=== PATIENT | male | born 1955 | race Hispanic/Latino ===

== ENCOUNTER 2018-01-13 09:50 | Observation (INO) | payer OTHER ==
[2018-01-05 12:09] LABS: BASOPHILS % 0.6 % (0.0-1.0); EOSINOPHILS # (AUTO) 0.2 (0.0-0.4); EOSINOPHILS % 2.5 % (0.0-6.0); HEMATOCRIT 42.2 % (38.2-49.6); HEMOGLOBIN 14.3 g/dL (14.0-18.0); LYMPHOCYTES # (AUTO) 1.6 (1.0-3.2); MEAN CORPUSCULAR HEMOGLOBIN 31.2 pg (28-32); MEAN CORPUSCULAR HGB CONC 33.9 g/dL (31-35); MEAN CORPUSCULAR VOLUME 92.1 fL (81-99); MONOCYTES # (AUTO) 0.7 (0.2-0.8); MONOCYTES % 9.4 % (4.4-11.3); NEUTROPHILS # (AUTO) 4.6 (2.1-6.9); NEUTROPHILS % 65.2 % (38.7-80.0); PLATELET COUNT 206 x10e3/uL (140-360); RED BLOOD COUNT 4.58 x10e6/uL (4.3-5.7); RED CELL DISTRIBUTION WIDTH 13.9 % (11.7-14.4)
[2018-01-05 12:21] LABS: ANION GAP 9.5 mmol/L (8-16); BLOOD UREA NITROGEN 14 mg/dL (7-26); BUN/CREATININE RATIO 13 (6-25); CALCIUM 9.2 mg/dL (8.4-10.2); CARBON DIOXIDE 30 mmol/L (22-29); CHLORIDE 103 mmol/L (98-107); CREATININE, SERUM 1.12 mg/dL (0.72-1.25); EST GLOMERULAR FILTRATION RATE > 60 ML/MIN (60-); GLUCOSE 129 mg/dL (74-118); POTASSIUM 4.5 mmol/L (3.5-5.1); SODIUM 138 mmol/L (136-145)
[~2018-01-13 09:50] MED LIST: ASA81 MG PO; FUROSEMIDE40 MG PO; HYDROCODONE AP PO; JANUVIA100 MG PO; LYRICA25 MG PO; METFORMIN HCL500 M2 PO; METOPROLOL TART25 MG PO; NAPROXEN250 MG PO; NITROGLYCERIN0.4 MG SL; OMEGA 3 1,0001 EACH PO; POTASSIUM CH2 MEQ/ML INJ; PRAVASTATIN SOD40 MG PO; XARELTO20 MG PO; Z.0.FUROSEMIDE40 MG PO; Z.0.LYRICA75 MG PO; Z.0.NAPROXEN500 M1 PO; Z.0.NITROSTAT0.4 MG SL; [UNRECOGNIZED DRUG - OTHER] PO
[2018-01-13] MEDS ORDERED: CEFAZOLIN SOD 2 GM/D5W 50ML 50 ML IV ONE (11:09)
[2018-01-13] MEDS ORDERED: LIDOCAINE HCL 1% LOCAL INJ 20 ML VIAL ONE (11:46)
[2018-01-13] MEDS ORDERED: BUPIVACAINE LIPOSOME/PF 266 MG/20 ML IJ ONE (11:46)
[2018-01-13] MEDS ORDERED: BACITRACIN 50,000 UNIT VIAL ONE (11:46)
[2018-01-13] MEDS ORDERED: ACETAMINOPHEN 1000 MG/100 ML 100 ML IV ONE (13:27)
[2018-01-13] MEDS ORDERED: HYDROGEN PEROXIDE 120 ML BTL ONE (16:23)
[2018-01-13] MEDS ORDERED: ONDANSETRON HCL INJ 2 MG/ML VIAL ONE (17:19)
[2018-01-13] MEDS ORDERED: LIDOCAINE HCL 2% LOCAL INJ 5 ML SDV VIAL INJ ONE (17:19)
[2018-01-13] MEDS ORDERED: SEVOFLURANE INHAL SOLN 250 ML PEN BTL ONE (17:19)
[2018-01-13] MEDS ORDERED: KETOROLAC TROMETHAMINE 30 MG/ML VIAL ONE (17:19)
[2018-01-13] MEDS ORDERED: DEXAMETHASONE SOD PHOS INJ 4 MG/ML VIAL ONE (17:19)
[2018-01-13] MEDS ORDERED: PROPOFOL IV EMULSION 10 MG/ML 20 ML VIAL ONE (17:19)
[2018-01-13] MEDS ORDERED: ACETAMINOPHEN 1000 MG/100 ML IV ONE (17:19)
[2018-01-13] MEDS ORDERED: FENTANYL CITRATE/PF 100MCG/2 ML INJ ONE ×2 (17:38→20:14)
[2018-01-13] MEDS ORDERED: MEPERIDINE HCL INJ 50 MG/ML INJ ONE (17:59)
--- NOTE | 2018-01-13 18:38 | Diagnostic Imaging Report ---
PROCEDURE:X-RAY RIGHT FOOT, TWO VIEWS COMPARISON:None. INDICATIONS:POST OP FINDINGS: Limited examination secondary to limited patient mobility, hardware obscuring bone, and lack of clinical history. AP and lateral postoperative radiographs are demonstrated of the foot. The ankle is partially visualized. There is extensive external fixation hardware which partially obscures visualization of bony structures. Surgical sutures overlie the medial and lateral ankle with associated subcutaneous gas and edema. Two partially threaded screws are seen transfixing the tibiotalar joint. Prior screw tracts are seen involving the distal tibia, likely from hardware removal. Extensive sclerotic and lytic destructive changes are seen involving the distal tibia/proximal talus which may reflect trauma, infection, or post operative change. There is a post traumatic partially seen deformity of the distal fibula. Alignment is otherwise maintained without evidence of other displaced fracture. There is diffuse osteopenia, which appears mottled in the foot, and may reflect disuse. Please refer to performing physician's notes for full details of this procedure. CONCLUSION: Post operative and traumatic changes of the foot and ankle as above. Dictated by: SAMANTHA GREGORY M.D. on 01/13/2018 at 18:42 Electronically approved by: SAMANTHA GREGORY M.D. on 01/13/2018 at 18:42
[2018-01-13] MEDS ORDERED: NITROGLYCERIN 0.4 MG SUBL SL PRN (19:45)
[2018-01-13] MEDS ORDERED: ROPIVACAINE 0.5% 5 MG/ML 30 ML SDV ONE (19:51)
[2018-01-13] MEDS ORDERED: LIDOCAINE 2%/ EPINEPHRINE 20ML MDV ONE (19:51)
[2018-01-13] MEDS ORDERED: MORPHINE SULFATE INJ 10 MG/ML ONE (20:14)
[2018-01-13] MEDS ORDERED: MIDAZOLAM HCL 2 MG/2 ML VIAL ONE (20:14)
[2018-01-13] MEDS: PREGABALIN 25 MG CAP PO SCH (20:40)
[2018-01-13] MEDS ORDERED: PRAVASTATIN 20 MG TAB PO SCH (21:00)
[2018-01-13] MEDS ORDERED: ACETAMINOPHEN 325 MG TAB PO PRN (21:30)
[2018-01-14] VITALS (8 sets, daily range): BP systolic 114–133; BP diastolic 55–70
[2018-01-14] MEDS: TRAMADOL HCL 50 MG TAB PO PRN ×4 (01:08→22:15)
[2018-01-14] MEDS: HYDROCODONE/APAP 10MG-325MG TAB PO PRN ×5 (03:30→21:07)
[2018-01-14] MEDS: SITAGLIPTIN 100 MG TAB PO SCH (08:48)
[2018-01-14] MEDS: METOPROLOL TARTRATE 25 MG TAB PO SCH ×2 (08:49→16:52)
[2018-01-14] MEDS: FUROSEMIDE 20 MG TAB PO SCH (08:49)
[2018-01-14] MEDS: OMEGA 3 POLYUNSAT FATTY ACIDS 1000 MG SOFTGEL PO SCH ×2 (08:50→16:52)
[2018-01-14] MEDS: PREGABALIN 25 MG CAP PO SCH ×3 (08:50→16:52)
[2018-01-14] MEDS: RIVAROXABAN 20 MG TABLET PO SCH (08:50)
[2018-01-14] MEDS ORDERED: METOPROLOL TARTRATE 25 MG TAB PO SCH (09:00)
[2018-01-14] MEDS ORDERED: METFORMIN HCL 500 MG TAB CR PO SCH (09:00)
[2018-01-14] MEDS ORDERED: FUROSEMIDE 40 MG TAB PO SCH (09:00)
[2018-01-14] MEDS ORDERED: NON-FORMULARY MEDICATION (Pravastatin Sodium 40 MG) PO SCH (09:00)
--- NOTE | 2018-01-14 14:28 | Progress Note ---
DATE: January 14, 2018 PODIATRY PROGRESS NOTE Patient was seen at bedside today, in no acute distress. Dressings clean, dry, intact to the right lower extremity. He did have his dressings changed earlier today and had the pin sites cleaned with alcohol. He denies any nausea, fever, chills, vomiting, any constitutional symptoms at this point. He did state that he had a mild fall earlier, trying to crutch-train on weightbearing. It was stressed to the patient that patient is to remain nonweightbearing in a wheelchair, not crutches. ASSESSMENT: Status post 1 day right ankle fusion with application of external fixator. PLAN: From podiatry standpoint, continue daily cleaning of the pin sites with alcohol. Planning on discharge tomorrow. Podiatry will continue to follow. Thank you again for including me in the care of this patient. Job#: [id number] EV
--- NOTE | 2018-01-14 15:48 | Operative Report ---
DATE OF PROCEDURE: January 13, 2018 PRINTING AND STAMPING SUPERVISOR: Seth Cervantes DPM PREOPERATIVE DIAGNOSIS: Right ankle nonunion with Charcot arthropathy. POSTOPERATIVE DIAGNOSIS: Right ankle nonunion with Charcot arthropathy. OPERATION PERFORMED 1. Right ankle arthrodesis. 2. Application of multiplanar external fixator right ankle. 3. Use of intraoperative fluoroscopy. ANESTHESIA: General. HEMOSTASIS: Thigh tourniquet at 250 mmHg. INJECTABLES: None. MATERIALS USED 1. Renée x6 ring for Charcot with the appropriate wires and pin. 2. Right 6.5 medical headless screws of the appropriate length. 3. Bio4 bone graft. DETAILS OF PROCEDURE: After informed consent was obtained, patient was brought to the operating room, placed on the operating table in supine position. General anesthesia was obtained. Pneumatic thigh tourniquet was applied to the right thigh. The right lower extremity was scrubbed, prepped and draped in the usual aseptic manner. Attention was directed to the right ankle where a linear incision was made on the lateral aspect of the right ankle. The incision was deepened down utilizing sharp dissection technique. All vital structures were identified and retracted as necessary. All bleeders identified, ligated and cauterized as necessary. Next the fibula was identified and resected at the nonunion site and held on the back table as a bone graft. Next, the ankle joint was thoroughly visualized. It was noted that there was a lot of necrotic sclerotic bone along the tibial plafond. All nonviable bone was resected and removed from the surgical site and all viable bone was saved as a bone graft. Next, the talar head was visualized and all articular cartilage was resected and removed from surgical site. Next, a tibiotalar arthrodesis site was thoroughly prepped with thorough irrigation and fenestration utilizing a 6.2 K-wire, also followed by fish scaling utilizing a small osteotome and mallet. Next, the tibial and talus were aligned and temporarily fixated. Intraoperative fluoroscopy was used which showed good reduction of deformity. Next, permanent fixation was completed utilizing two 6.5 partially threaded cannulated right medical screws of the appropriate length in a crossing screw fashion. Next, the wounds were irrigated with copious amounts of saline. The wounds were then coapted with 2-0 Vicryl, 4-0 Vicryl, and 4-0 nylon. Next, attention was directed to the right lower extremity. The right lower extremity was then placed into an external fixator. This was done under direct visualization utilizing intraoperative fluoroscopy. The was placed across the fusion site overlaying the right foot and ankle. Next, the right foot was then placed in a dry sterile dressing consisting of Xeroform, 4 x 4's, Kerlix and Gabo wrap. Pneumatic thigh tourniquet was deflated and prompt response was noted to all digits of the right lower extremity. Patient tolerated the procedure and anesthesia well. Patient was transferred back to recovery room with vital signs stable and neurovascular status intact to preop status. Job#: [id number] AP
[2018-01-14] MEDS: SIMVASTATIN 20 MG TAB PO SCH (21:07)
[2018-01-15] VITALS (8 sets, daily range): BP systolic 96–126; BP diastolic 51–67
[2018-01-15] MEDS: HYDROCODONE/APAP 10MG-325MG TAB PO PRN ×4 (01:38→16:54)
[2018-01-15] MEDS: TRAMADOL HCL 50 MG TAB PO PRN (04:35)
[2018-01-15 04:45] LABS: BASOPHILS % 0.2 % (0.0-1.0); EOSINOPHILS # (AUTO) 0.1 (0.0-0.4); EOSINOPHILS % 0.7 % (0.0-6.0); HEMATOCRIT 33.5 % (38.2-49.6); HEMOGLOBIN 11.5 g/dL (14.0-18.0); LYMPHOCYTES # (AUTO) 2.2 (1.0-3.2); LYMPHOCYTES % 17.4 % (18.0-39.1); MEAN CORPUSCULAR HEMOGLOBIN 31.9 pg (28-32); MEAN CORPUSCULAR HGB CONC 34.3 g/dL (31-35); MEAN CORPUSCULAR VOLUME 92.8 fL (81-99); MONOCYTES # (AUTO) 1.5 (0.2-0.8); MONOCYTES % 11.8 % (4.4-11.3); NEUTROPHILS # (AUTO) 8.6 (2.1-6.9); NEUTROPHILS % 69.6 % (38.7-80.0); PLATELET COUNT 172 x10e3/uL (140-360); RED BLOOD COUNT 3.61 x10e6/uL (4.3-5.7); RED CELL DISTRIBUTION WIDTH 13.9 % (11.7-14.4)
[2018-01-15 05:00] LABS: BLOOD UREA NITROGEN 14 mg/dL (7-26); BUN/CREATININE RATIO 17 (6-25); CALCIUM 8.4 mg/dL (8.4-10.2); CARBON DIOXIDE 28 mmol/L (22-29); CHLORIDE 100 mmol/L (98-107); CREATININE, SERUM 0.83 mg/dL (0.72-1.25); EST GLOMERULAR FILTRATION RATE > 60 ML/MIN (60-); GLUCOSE 123 mg/dL (74-118); MAGNESIUM 2.2 MG/DL (1.3-2.1); SODIUM 136 mmol/L (136-145)
[2018-01-15 08:09] LABS: CHOL/HDL RATIO 2.5 (3.9-4.7)
--- NOTE | 2018-01-15 08:11 | Progress Note ---
DATE: January 15, 2018 TIME OF SERVICE: 7 a.m. OVERNIGHT: Some shortness of breath, started on oxygen therapy. REVIEW OF SYSTEMS: Denies any dizziness, chest pain, fever, chills, sweats, nausea, vomiting or diarrhea. VITAL SIGNS: Reviewed. OBJECTIVE GENERAL APPEARANCE: A tired-appearing man resting in bed. HEENT: Anicteric. CARDIOVASCULAR: Normal S1 and S2. LUNGS: He has moderate breath sounds, slightly reduced. ABDOMEN: Soft, nontender, nondistended. EXTREMITIES: Right foot with an external fixator in place. SKIN: Dry. PSYCHIATRIC: Flat affect. LABS: Reviewed. MEDICATIONS: Reviewed. ASSESSMENT AND PLAN: A 62-year-old man. 1. Right ankle fracture. 2. Right foot pain. 3. Coronary artery disease. 4. Hypertension. 5. Diabetes mellitus. 6. Tobacco use. 7. Hyperlipidemia. 8. Shortness of breath. PLAN 1. Obtain chest x-ray, 2 views. 2. Use nebs p.r.n. 3. Continue oxygen support. 4. Consider azithromycin. 5. Provide antitussive medication. 6. Will need physical therapy and wheelchair for home use. 7. Discharge planning. Job#: [id number]
--- NOTE | 2018-01-15 08:52 | History and Physical ---
DATE OF SERVICE: January 14, 2018 TIME: 1 p.m. PRIMARY CARE PHYSICIAN: Dr. Roque CHIEF COMPLAINT: Right leg injury. HISTORY OF PRESENT ILLNESS: This is a 62-year-old man with a history of coronary artery disease, who is on ladder, trimming his trees when he fell off, falling onto his foot with tremendous pain, brought to the hospital, found to have right ankle fracture, underwent right ankle arthrodesis and application of multiplanar external fixator to the right ankle. Currently, patient's pain is about 4/10. PAST MEDICAL HISTORY: Coronary artery disease status post stent 11 years ago, hypertension, diabetes mellitus, tobacco abuse. PAST SURGICAL HISTORY: Coronary stent placement, left meniscus repair, heel spur, tobacco use. ALLERGIES: PER ELECTRONIC MEDICAL RECORD. FAMILY/SOCIAL HISTORY: Patient is . He has 3 children. No alcohol, illicits, or cigarettes. He does dip tobacco. MEDICATIONS: Per electronic medical record. REVIEW OF SYSTEMS: Denies any dizziness, chest pain, shortness of breath, fever, chills, sweats, nausea, vomiting, diarrhea, back pain. PHYSICAL EXAMINATION: VITAL SIGNS: Have been reviewed. GENERAL APPEARANCE: Tired-appearing man resting in bed. HEENT: Anicteric. CARDIOVASCULAR: Normal S1 and S2. LUNGS: Moderate breath sounds. ABDOMEN: Soft, nontender, nondistended. EXTREMITIES: No edema or calf tenderness in left leg. In right leg, he has external fixator in place. SKIN: Dry. PSYCHIATRIC: Flat affect. LABS: Reviewed. MEDICATIONS: Reviewed. ASSESSMENT: A 62-year-old man: 1. Right ankle fracture. 2. Right foot pain. 3. Coronary artery disease with history of stent. 4. Hypertension. 5. Diabetes mellitus. 6. Tobacco use. 7. Hyperlipidemia. PLAN: 1. Will need to follow up with orthopedics. 2. Pain control. 3. Continue Xarelto. 4. Continue statin and other medications. 5. Check hemoglobin A1c and lipid panel. Job#: [id number]
[2018-01-15] MEDS: AZITHROMYCIN 500MG/NS 250 ML 250 ML IV SCH (09:03)
[2018-01-15] MEDS: SITAGLIPTIN 100 MG TAB PO SCH (09:03)
[2018-01-15] MEDS: PREGABALIN 25 MG CAP PO SCH ×3 (09:04→22:00)
[2018-01-15] MEDS: FUROSEMIDE 20 MG TAB PO SCH (09:04)
[2018-01-15] MEDS: RIVAROXABAN 20 MG TABLET PO SCH (09:04)
[2018-01-15] MEDS: METFORMIN HCL 500 MG TAB CR PO SCH (09:04)
[2018-01-15] MEDS: METOPROLOL TARTRATE 25 MG TAB PO SCH ×2 (09:04→16:30)
[2018-01-15] MEDS: OMEGA 3 POLYUNSAT FATTY ACIDS 1000 MG SOFTGEL PO SCH ×2 (09:04→16:30)
--- NOTE | 2018-01-15 10:40 | Diagnostic Imaging Report ---
PROCEDURE: X-RAY CHEST, TWO VIEWS COMPARISON: 11/21/2011 INDICATIONS: SHORTNESS OF BREATH FINDINGS: LUNGS: No consolidations or edema. Right basilar atelectasis. PLEURA: No effusions or pneumothorax. HEART \T\ MEDIASTINUM: The heart is within normal size-limits. Elevated right hemidiaphragm anteriorly secondary to focal eventration BONES \T\ SOFT TISSUES: No acute findings. CONCLUSION: No acute thoracic abnormality. Carlos Acuña D.O. Dictated by: Carlos Acuña D.O. on 01/15/2018 at 10:45 Electronically approved by: Carlos Acuña D.O. on 01/15/2018 at 10:45
[2018-01-15] MEDS: ALBUTEROL/IPRATROPIUM 3 ML NEB NEB PRN (10:43)
--- NOTE | 2018-01-15 14:27 | Progress Note ---
DATE: January 15, 2018 The patient was seen at bedside today. No acute distress. He does admit to some shortness of breath overnight. Other than that, denies any other constitutional symptoms. Clinically, the pin sites look good. I did recommend a dressing change with cleaning of the pin sites with alcohol. ASSESSMENT 1. Status post 2 days, right ankle arthrodesis with application of external fixator. 2. Coronary artery disease. 3. Hypertension. 4. Diabetes mellitus with peripheral neuropathy. 5. History of Charcot arthropathy of the right ankle. PLAN: From a podiatry standpoint, dressing changes were ordered today, which consist of cleaning the pin sites with alcohol and placement of Xeroform, 4 x 4's, Kerlix, and an Gabo wrap along the pin sites and the external fixator. I have recommended a D-dimer study along with a venous duplex study prior to discharge. If the studies come back negative, the patient is okay to discharge home. He is to follow up with me in the clinic within 1 week of discharge. He is to stay nonweightbearing on the right lower extremity with a wheelchair. Thank you again for including me in the care of this patient. Job#: [id number] CARRILLO
[2018-01-15] MEDS ORDERED: SODIUM CHLORIDE 0.9% 50ML 50 ML ONE (18:37)
[2018-01-15] MEDS ORDERED: IOPAMIDOL 370 MG/ML 200 ML INFUS..BTL INJ ONE (18:37)
--- NOTE | 2018-01-15 18:53 | Diagnostic Imaging Report ---
PROCEDURE:CT CHEST WITH CONTRAST COMPARISON:None. INDICATIONS:sob, pe, post surgery 2 days, history of blood clots TECHNIQUE: Axial CT images of the chest were obtained after the intravenous administration of 100 cc of nonionic contrast. Coronal and sagittal reformations were made available for review. RADIATION DOSE: Total DLP: 584.98 mGy*cm Estimated effective dose: (DLP x 0.014 x size factor) mSv FINDINGS: Pulmonary arteries: Thin, linear filling defect in the proximal lower lobe branch of the right pulmonary artery. Small, nonocclusive filling defect in the proximal lower lobe branch of the left pulmonary artery. No filling defects in the main pulmonary artery. Main pulmonary artery measures 2.8 cm in diameter. Aorta: Normal in diameter. No evidence of dissection. Lungs: Diffusely hyperinflated. There is dependent subpleural ground glass attenuation suggestive of atelectasis. No consolidations or edema. No discrete mass. Pleura:No pleural effusion or pneumothorax. There is mild eventration of right diaphragm. Heart \T\ Mediastinum:Prominent epicardial fat pads. No pericardial effusion. Coronary artery calcifications are present. The esophagus is collapsed. Lymph nodes: No enlarged axillary, supraclavicular lymph nodes. No large mediastinal lymph nodes. Mildly prominent right hilar lymph node measures 8 mm. Upper abdomen:There is fatty atrophy of the pancreas. Low attenuating lesion in the liver dome measures 3 mm, too small characterize. Portions of the gallbladder, spleen, adrenal glands coming kidneys are unremarkable. Musculoskeletal:No focal osseous lesions. Soft tissues are unremarkable. CONCLUSION: 1. Web in a lower lobe branch of the right pulmonary artery and tiny nonocclusive filling defects in the lower lobe branch of the left pulmonary artery suggestive of chronic emboli. No acute embolus. 2. Pulmonary hyperinflation consistent with COPD. No pulmonary infiltrates. Dictated by: Rodriguez Alejandro M.D. on 01/15/2018 at 18:57 Electronically approved by: Rodriguez Alejandro M.D. on 01/15/2018 at 18:58
[2018-01-15] MEDS: SIMVASTATIN 20 MG TAB PO SCH (22:00)
[2018-01-16 00:01] VITALS: BP 128/67
[2018-01-16] MEDS: HYDROCODONE/APAP 10MG-325MG TAB PO PRN ×3 (00:10→08:19)
[2018-01-16 05:00] VITALS: BP 115/56
[2018-01-16 07:39] VITALS: BP 112/58
[2018-01-16] MEDS: AZITHROMYCIN 500MG/NS 250 ML 250 ML IV SCH (08:18)
[2018-01-16] MEDS: FUROSEMIDE 20 MG TAB PO SCH (08:18)
[2018-01-16] MEDS: SITAGLIPTIN 100 MG TAB PO SCH (08:18)
[2018-01-16] MEDS: OMEGA 3 POLYUNSAT FATTY ACIDS 1000 MG SOFTGEL PO SCH (08:18)
[2018-01-16] MEDS: RIVAROXABAN 20 MG TABLET PO SCH (08:18)
[2018-01-16] MEDS: PREGABALIN 25 MG CAP PO SCH (08:18)
[2018-01-16 08:19] VITALS: BP 112/50
[2018-01-16] MEDS: METOPROLOL TARTRATE 25 MG TAB PO SCH (08:19)
[2018-01-16] MEDS: METFORMIN HCL 500 MG TAB CR PO SCH (08:19)
[2018-01-16] MEDS ORDERED: ALPRAZOLAM 0.5 MG TAB PO PRN (09:30)
[2018-01-16] MEDS: ALBUTEROL/IPRATROPIUM 3 ML NEB NEB PRN (09:32)
[2018-01-16] MEDS ORDERED: TYLENOL # 31 EA PO (09:34)
[2018-01-16] MEDS ORDERED: XANAX0.5 MG PO (09:34)
[2018-01-16] MEDS ORDERED: PROAIR HFA INH8.5 GM INH (09:34)
[2018-01-16] MEDS ORDERED: ZITHROMAX500 MG PO (09:34)
[2018-01-16 09:51] LABS: BASOPHILS % 0.3 % (0.0-1.0); EOSINOPHILS # (AUTO) 0.2 (0.0-0.4); EOSINOPHILS % 2.2 % (0.0-6.0); HEMATOCRIT 33.4 % (38.2-49.6); HEMOGLOBIN 11.1 g/dL (14.0-18.0); LYMPHOCYTES # (AUTO) 1.8 (1.0-3.2); LYMPHOCYTES % 18.3 % (18.0-39.1); MEAN CORPUSCULAR HEMOGLOBIN 31.5 pg (28-32); MEAN CORPUSCULAR HGB CONC 33.2 g/dL (31-35); MEAN CORPUSCULAR VOLUME 94.9 fL (81-99); MONOCYTES # (AUTO) 0.8 (0.2-0.8); MONOCYTES % 8.3 % (4.4-11.3); NEUTROPHILS # (AUTO) 6.8 (2.1-6.9); NEUTROPHILS % 70.5 % (38.7-80.0); PLATELET COUNT 184 x10e3/uL (140-360); RED BLOOD COUNT 3.52 x10e6/uL (4.3-5.7); RED CELL DISTRIBUTION WIDTH 13.8 % (11.7-14.4)
[2018-01-16 10:04] LABS: ANION GAP 12.4 mmol/L (8-16); BLOOD UREA NITROGEN 13 mg/dL (7-26); BUN/CREATININE RATIO 13 (6-25); CALCIUM 8.6 mg/dL (8.4-10.2); CARBON DIOXIDE 30 mmol/L (22-29); CHLORIDE 102 mmol/L (98-107); CREATININE, SERUM 1.03 mg/dL (0.72-1.25); EST GLOMERULAR FILTRATION RATE > 60 ML/MIN (60-); GLUCOSE 190 mg/dL (74-118); POTASSIUM 4.4 mmol/L (3.5-5.1); SODIUM 140 mmol/L (136-145)
[2018-01-16] MEDS ORDERED: FUROSEMIDE INJ 10 MG/ML 2 ML VIAL IV ONE (11:15)
[2018-01-16 12:05] VITALS: BP 148/72
--- NOTE | 2018-01-16 19:23 | Discharge Summary ---
ADMISSION DIAGNOSES 1. Right ankle fracture. 2. Right foot pain. 3. Coronary artery disease with history of stent. 4. Hypertension. 5. Diabetes. 6. Tobacco use. 7. Hyperlipidemia. 8. History of deep venous thrombosis. DISCHARGE DIAGNOSES 1. Right ankle fracture. 2. Right foot pain. 3. Coronary artery disease with history of stent. 4. Hypertension. 5. Diabetes. 6. Tobacco use. 7. Hyperlipidemia. 8. History of deep venous thrombosis. HISTORY: The patient has a history of CAD, status post stent 11 years ago, hypertension, diabetes, tobacco abuse, DVT. Surgical history of coronary stent placement, left meniscus repair, heel spur, and tobacco use. HOSPITAL COURSE: A 62-year-old male was on a ladder trimming his trees when he fell off falling onto his right foot. He came to the ER and was found to have a right ankle fracture. He immediately underwent right ankle arthrodesis and application of external fixator to the right ankle. On admission, the patient had a chest x-ray which was negative. A CT of the chest showed web in a lower lobe branch of the right pulmonary artery and tiny nonocclusive filling defects in the lower lobe branch of the left pulmonary artery suggestive of chronic emboli. No acute embolus. Pulmonary hyperinflation consistent with COPD. No pulmonary infiltrate. The patient also had bilateral lower extremity venous Dopplers, which showed DVT and superficial veins bilaterally. On January 13, 2018, the patient had the surgery and tolerated it well. Patient and family were taught how to clean around the screws and will follow up with Dr. Collins next Thursday, who is the pipeline technician who performed the procedure. The patient will discharge home continuing home meds, including Xarelto 20 mg daily. He also complained of anxiety. The patient was sent home with Xanax 0.5 mg b.i.d. p.r.n., as well as albuterol inhaler for shortness of breath related to anxiety. The patient's pain is tolerated. He is nonweightbearing on the right foot, and will need to get around using a wheelchair, which he already has at bedside. The patient and family understand discharge instructions and agree with plan. The patient is excited and happy to go home. DICTATED BY CHELLY WINSTON NP ADAL CRESPO MD Job#: [id number] RI
== END 2018-01-16 11:45 | disposition home or self-care (01) ==
LOC: OR 09:50 → INTOOBSV 19:49 → MED/SURG 19:49
PROVIDERS: ADMIT Internal Medicine; ATTEND Internal Medicine
DX: S82.891A Other fracture of right lower leg, initial encounter for closed fracture (principal); M14.671 Charcot's joint, right ankle and foot; I25.10 Atherosclerotic heart disease of native coronary artery without angina pectoris; I10 Essential (primary) hypertension; E66.01 Morbid (severe) obesity due to excess calories; Z91.013 Allergy to seafood; E78.5 Hyperlipidemia, unspecified; Z72.0 Tobacco use; E11.42 Type 2 diabetes mellitus with diabetic polyneuropathy; Z86.718 Personal history of other venous thrombosis and embolism; F41.9 Anxiety disorder, unspecified; W11.XXXA Fall on and from ladder, initial encounter; Y93.H2 Activity, gardening and landscaping
CPT/HCPCS: 27870; 36415 ×4; 71046; 71260; 73620; 76001; 80048 ×3; 80061; 82948 ×3; 83036; 83735; 83880; 85025 ×3; 85379; 93005; 93970; 94640 ×2; 94660; 97116; 97139; 97161; G0378 ×4; J0456 ×2; J1100; J1885; J1940; J2001 ×2; J2175; J2250; J2270; J2405; J2795; Q9967

== ENCOUNTER → 2018-04-05 | Outpatient (CLI) | payer OTHER ==
[~2018-04-05] MED LIST changes: +PROAIR HFA INH8.5 GM INH; +TYLENOL # 31 EA PO; +XANAX0.5 MG PO; +ZITHROMAX500 MG PO
--- NOTE | 2018-04-06 08:10 | Diagnostic Imaging Report ---
PROCEDURE: BONE DXA DUAL ENERGY COMPARISON:None. INDICATIONS:OTHER SPECIFIED DISORDERS OF BONE DENSITY FINDINGS:Evaluation of the left hip and lumbar spine was performed utilizing DEXA Hologic bone densitometer. The study is technically adequate. The patient does not have any known previous non-traumatic fractures or other risk factors. Left hip total bone mineral density: 1.168 gm/cm2, T-score is 0.9, Z-score is 1.3. Lumbar spine total bone mineral density: 1.225 gm/cm2, T-score is 1.2, Z-score is 1.9. Impression: 1. Normal bone mineral density of the left hip, fracture risk is not increased. 2. Normal bone mineral density of the lumbar spine, fracture risk is not increased. The patient's fracture risk is compared to an age-matched control. Medical evaluation for secondary causes of low bone mineral density may be appropriate. Correlate clinically for the necessity and timing of the next bone mineral density study. National Osteoporosis Foundation recommendations: Initial therapy to reduce fracture risk in postmenopausal women with -BMD t-scores below -2.0 by central DXA with no risk factors -BMD t-scores below -1.5 by central CXA with one or more risk factors (first deg relative with hip fracture, prior personalfracture, low body weight, smoking) -A prior vertebral or hip fracture AACE n(Clinical Endocrinology) recommends treating the following: Postmenopausal women who have osteoporosis as diagnosed by fragility fractures or t-score -2.5 or below. Postmenopausal women who have risk factors (including hx of hip fracture, low body weight, smoking, risk of falling, high bone turnover, advancing age) and borderline low BMD T-scores of -1.5 or below Adequate intake of calcium (at least 1200mg/day) and vitamin D (400-800IU/day). Regular weight bearing and muscle-strengthening exercises Avoid smoking and excessive alcohol Carlos Acuña D.O. Dictated by: Carlos Acuña D.O. on 04/06/2018 at 8:18 Electronically approved by: Carlos Acuña D.O. on 04/06/2018 at 8:18
== END ==
LOC: DX 09:47
PROVIDERS: ATTEND Internal Medicine
DX: M85.80 Other specified disorders of bone density and structure, unspecified site (principal)
CPT/HCPCS: 77080

== ENCOUNTER → 2018-04-22 | Day surgery (SDC) | payer OTHER ==
[~2018-04-22] MED LIST changes: +ACETAMINOPHEN 1000 MG/100 ML IV ONE; +BUPIVACAINE HCL 0.5% 10ML MPF VIAL INJ ONE; +CEFAZOLIN SOD 2 GM/D5W 50ML 50 ML IV ONE; +FENTANYL CITRATE/PF 100MCG/2 ML INJ ONE; +KETOROLAC TROMETHAMINE 30 MG/ML VIAL ONE; +MIDAZOLAM HCL 2 MG/2 ML VIAL ONE; +PROPOFOL IV EMULSION 10 MG/ML 20 ML VIAL ONE
--- OUTSIDE RECORDS SUMMARY | 2018-04-22 09:37 | XMS REPORT | Continuity of Care Document ---
Author Author [facility] Address Unknown Phone Unavailable Problems Problem Status Onset Date Classification Date Reported Comments Source OSTEOMYELETIS Active 04/17/2017 [facility] OSTEOMYELITIS Active 04/15/2017 [facility] FALL Active 09/28/2016 [facility] Discharge Diagnosis: Fracture of ankle, bimalleolar, right, closed 09/28/2016 10/01/2016 [facility] DVT of lower extremity, bilateral Resolved Problem 04/25/2017 [facility] High cholesterol Resolved Problem 04/25/2017 [facility] Hypertension Resolved Problem 04/25/2017 [facility] Heart attack Resolved Problem 04/25/2017 [facility] Medications Medication Details Route Status Patient Instructions Ordering Provider Order Date Source naproxen 500 mg oral tablet 500 mg=1 tab, PO, BID, # 60 tab, 0 Refill(s) Active 09/28/2016 [facility] Acetaminophen 300 MG / Codeine Phosphate 30 MG Oral Tablet [Tylenol with Codeine #3] 1 - 2 tab, PO, Q4H, PRN Pain, X 3 day, # 20 tab, 0 Refill(s) Active 09/28/2016 [facility] Acetaminophen 325 MG / Hydrocodone Bitartrate 5 MG Oral Tablet [[place]worth 5/325] 1 tab, Route: PO, Drug Form: TAB, Dosing Weight 102.273, kg, ONCE, STAT, Start date: 09/28/16 10:29:00 CDT, Stop date: 09/28/16 10:29:00 CDT Inactive 09/28/2016 [facility] Allergies, Adverse Reactions, Alerts Substance Category Reaction Severity Reaction type Status Date Reported Comments Source Immunizations Immunization Date Given Site Status Last Updated Comments Source Results Order Name Results Value Reference Range Date Interpretation Comments Source Bone scan 3 phase NM Bone scan 3 phase NM EXAM: Three-phase bone scan HISTORY: Osteomyelitis COMPARISON: Radiographs right ankle 09/28/2016 TECHNIQUE: Three-phase bone scan performed of the ankles following IV administration of 27 mCi technetium 99m MDP via right PICC line. FINDINGS: Increased tracer activity in the right ankle on blood flow, blood pool and delayed images. Degenerative type tracer activity at the 1st metatarsophalangeal joints and mid feet bilaterally. IMPRESSION: Findings compatible with osteomyelitis right ankle. 13 04/22/2017 - - Read by: Spencer Tucker MD Dictated Date/time: 04/22/17 16:46 Electronically Signed by: Spencer Tucker MD 04/22/17 16:52 FINAL REPORT [facility] Chest 1view DX Chest 1view DX Portable chest: The PICC line tip is in good position in the lower SVC. The cardiac silhouette and pulmonary vasculature are within normal limits. The lungs spaces are clear. There are no significant osseous abnormalities. [id number] 04/16/2017 - - Read by: Adolfo Waters MD Dictated Date/time: 04/16/17 09:52 Electronically Signed by: Adolfo Waters MD 04/16/17 09:52 FINAL REPORT [facility] Ankle 2 views DX Ankle 2 views DX Clinical Indication: ANKLE PAIN AFTER FALLING FROM LADDER TRYING TO CUT DOWN TREE - fall, pain; Comparison: None FINDINGS: 2 view of the right ankle. Comminuted fracture of the distal tibial metaphysis extending to the articular surface. Superiorly and anteriorly displaced fragment of the anterior surface of the tibial metaphysis. The medial malleolus is also mildly displaced. Nondisplaced, minimally angulated fracture of the distal ulnar diaphysis. Medial airspace slightly widened. Soft tissue swelling circumferentially. If there is further concern, recommend follow-up radiographs or MRI for complete assessment. IMPRESSION: Comminuted intra-articular distal tibial metaphyseal fracture. Nondisplaced transverse fracture of the distal ulnar diaphysis. : [id number] 09/28/2016 - - Read by: Adolfo Logan MD Dictated Date/time: 09/28/16 10:56 Electronically Signed by: Adolfo Logan MD 09/28/16 10:59 FINAL REPORT [facility] Vital Signs Vital Sign Value Date Comments Source BMI Calculated 32.17 04/16/2017 [facility] Weight 93.182 04/16/2017 [facility] Height 170.18 cm 04/16/2017 [facility] Temperature Oral (F) 98.3 F 09/28/2016 [facility] Heart Rate 67 09/28/2016 [facility] Respitory Rate 15 09/28/2016 [facility] Systolic (mm Hg) 151 09/28/2016 [facility] Diastolic (mm Hg) 84 09/28/2016 [facility] Weight 102.273 09/28/2016 [facility] BMI Calculated 35.31 09/28/2016 [facility] Respitory Rate 17 09/28/2016 [facility] Heart Rate 69 09/28/2016 [facility] Systolic (mm Hg) 157 09/28/2016 [facility] Diastolic (mm Hg) 97 09/28/2016 [facility] Height 170.18 cm 09/28/2016 [facility] Temperature Oral (F) 98.3 F 09/28/2016 [facility] Encounters Location Location Details Encounter Type Encounter Number Reason For Visit Attending Provider ADM Date DC Date Status Source [facility] Emergency [id number] Sean Jessica 09/28/2016 09/28/2016 [facility] [id number] Erica Clarke 04/16/2017 04/17/2017 [facility] [id number] Erica Clarke 04/22/2017 04/23/2017 [facility] Procedures Procedure Code Date Perfomer Comments Source Arthroscopic knee operation [id number] [facility] Bunionectomy [id number] [facility] Provision of stents or bite blocks<sup>1</sup> [id number] heart stents [facility]
[2018-04-22 13:45] VITALS: BP 121/75
--- NOTE | 2018-05-06 16:06 | Operative Report ---
DATE OF PROCEDURE: April 22, 2018 SUPERVISOR CAPACITOR PROCESSING: None. PREOPERATIVE DIAGNOSIS: Painful hardware, right foot and ankle. POSTOPERATIVE DIAGNOSIS: Painful hardware, right foot and ankle. OPERATION PERFORMED: 1. Removal of external fixator, multiple fixation from left foot and ankle. 2. Use of intraoperative fluoroscopy. DETAILS OF PROCEDURE: After informed consent was obtained, the patient was brought to the operating room and placed on the operating table in the supine position. General anesthesia was obtained. Pneumatic thigh tourniquet was applied to the right thigh. The right lower extremity was then scrubbed, prepped and draped in the usual aseptic manner. Attention was directed to the right foot and ankle where the external fixator was removed from the right foot and ankle utilizing wire cutters. The external fixator was removed and then all wires and pen sites were removed from the surgical site. Intraoperative fluoroscopy was used at this point to make sure that all wires and remaining pens were removed from the right lower extremity. The right foot was then placed in a dry sterile dressing consisting of Xeroform, 4 x 4, Kerlix and Gabo wrap. The patient tolerated the procedure and anesthesia well. The patient was transferred back to the recovery room with vital signs stable and neurovascular status intact to preop status. Job#: [id number]
== END | disposition home or self-care (01) ==
LOC: OR 09:25
PROVIDERS: ATTEND Podiatrist Foot & Ankle Surgery
DX: T84.84XA Pain due to internal orthopedic prosthetic devices, implants and grafts, initial encounter (principal); I25.2 Old myocardial infarction; E11.51 Type 2 diabetes mellitus with diabetic peripheral angiopathy without gangrene; M19.012 Primary osteoarthritis, left shoulder; I25.111 Atherosclerotic heart disease of native coronary artery with angina pectoris with documented spasm; I11.9 Hypertensive heart disease without heart failure; I05.9 Rheumatic mitral valve disease, unspecified; E78.5 Hyperlipidemia, unspecified; G47.33 Obstructive sleep apnea (adult) (pediatric); I82.501 Chronic embolism and thrombosis of unspecified deep veins of right lower extremity; Y83.8 Other surgical procedures as the cause of abnormal reaction of the patient, or of later complication, without mention of misadventure at the time of the procedure; Z79.02 Long term (current) use of antithrombotics/antiplatelets; Z79.84 Long term (current) use of oral hypoglycemic drugs; Z79.82 Long term (current) use of aspirin; Z68.36 Body mass index [BMI] 36.0-36.9, adult; Z95.5 Presence of coronary angioplasty implant and graft
CPT/HCPCS: 20694; 36415; 82948; J0131; J0690; J1885; J2250; J2704; 76000

== ENCOUNTER → 2019-05-06 | Day surgery (SDC) | payer MEDICARE ==
[2019-05-04 10:03] LABS: BASOPHILS % 0.4 % (0.0-1.0); EOSINOPHILS # (AUTO) 0.1 (0.0-0.4); EOSINOPHILS % 1.5 % (0.0-6.0); HEMOGLOBIN 15.6 g/dL (14.0-18.0); LYMPHOCYTES # (AUTO) 1.6 (1.0-3.2); LYMPHOCYTES % 20.9 % (18.0-39.1); MEAN CORPUSCULAR HEMOGLOBIN 31.4 pg (28-32); MEAN CORPUSCULAR HGB CONC 33.9 g/dL (31-35); MEAN CORPUSCULAR VOLUME 92.6 fL (81-99); MONOCYTES # (AUTO) 0.7 (0.2-0.8); MONOCYTES % 9.1 % (4.4-11.3); NEUTROPHILS # (AUTO) 5.1 (2.1-6.9); NEUTROPHILS % 67.7 % (38.7-80.0); PLATELET COUNT 217 x10e3/uL (140-360); RED BLOOD COUNT 4.97 x10e6/uL (4.3-5.7); RED CELL DISTRIBUTION WIDTH 13.2 % (11.7-14.4)
[2019-05-04 10:18] LABS: ANION GAP 14.3 mmol/L (8-16); BLOOD UREA NITROGEN 14 mg/dL (7-26); BUN/CREATININE RATIO 13 (6-25); CARBON DIOXIDE 26 mmol/L (22-29); CHLORIDE 98 mmol/L (98-107); CREATININE, SERUM 1.07 mg/dL (0.72-1.25); EST GLOMERULAR FILTRATION RATE > 60 ML/MIN (60-); GLUCOSE 104 mg/dL (74-118); POTASSIUM 4.3 mmol/L (3.5-5.1); SODIUM 134 mmol/L (136-145)
--- NOTE | 2019-05-04 11:16 | Diagnostic Imaging Report ---
EXAMINATION: CHEST 2 VIEWS INDICATION: Pre-operative COMPARISON: Chest Radiograph 04/20/2019 FINDINGS: LINES/TUBES:None LUNGS:The lungs are well-inflated. No focal consolidation or pulmonary edema. PLEURA:No pleural effusion or pneumothorax. MEDIASTINUM:The cardiomediastinal silhouette appears normal in size and shape. BONES/SOFT TISSUES:No acute osseous injury. ABDOMEN:No free air under the diaphragm. IMPRESSION: 1. No focal pneumonia or pulmonary edema. Signed by: Leighann Marquez MD on 05/04/2019 11:13 AM
[~2019-05-06] MED LIST changes: -ACETAMINOPHEN 1000 MG/100 ML IV ONE; -BUPIVACAINE HCL 0.5% 10ML MPF VIAL INJ ONE; +BUPIVACAINE HCL 0.5% INJ 30 ML VIAL INJ ONE; -CEFAZOLIN SOD 2 GM/D5W 50ML 50 ML IV ONE; +DEXAMETHASONE SOD PHOS INJ 4 MG/ML VIAL ONE; +ENTRESTO 24 MG1 EACH PO; -KETOROLAC TROMETHAMINE 30 MG/ML VIAL ONE; +LIDOCAINE HCL 2% LOCAL INJ 5 ML SDV VIAL INJ ONE; +NEOSTIGMINE 1 MG/ML 10ML VIAL ONE; +ONDANSETRON HCL INJ 2MG/ML 2ML 2 MG/ML VIAL ONE; +SEVOFLURANE INHAL SOLN 250 ML PEN BTL ONE; +SPIRONOLACTONE25 MG PO; +VITAMIN D31000 UNIT PO
[2019-05-06] MEDS: CEFAZOLIN SOD 1 GM/NS 50ML 100 ML IV ONE (06:56)
[2019-05-06 12:35] VITALS: BP 107/76
--- NOTE | 2019-05-07 04:08 | Operative Report ---
DATE OF PROCEDURE: 05/06/2019 SURGEON: Seth Cervantes DPM ROOM NUMBER: [facility]. PREOPERATIVE DIAGNOSES: Plantar fasciitis, plantar calcaneal spur. POSTOPERATIVE DIAGNOSES: Plantar fasciitis, plantar calcaneal spur. TITLE OF OPERATION: Endoscopic plantar fasciotomy of the right foot with excision of heel spur, right foot. ANESTHESIA: General endotracheal. HEMOSTASIS: Right thigh tourniquet at 350 mmHg. PROCEDURE IN DETAIL: The patient was taken to the operating room in a mildly sedated state, placed on the operating table in supine position. Following induction of general anesthetic, the right lower extremity was placed on the operating table prior to performing following procedure. Procedure #1: Endoscopic plantar fasciotomy of the right foot. An approximate 2 cm medial stab incision was placed on the right foot, plantar fascia was identified. Cannula was advanced across the plantar aspect and the lateral aspect and the area was irrigated with copious amounts of sterile saline solution. A Q-tip was used to clean the cannula before advancement of the camera. Camera was used to identify the medial band of the plantar fascia, which was transected sharply to allow for lengthening of the plantar fascia. The bone spur itself was identified and through the same incision. After removal of the cannula, a bone spur was resected utilizing a power rasp under fluoroscopy, irrigated and closed with 3-0 Vicryl, 4-0 nylon. The appropriate mildly compressive dressings were applied and the patient left the operating room, vital signs stable in apparent satisfactory condition and tolerated both anesthetic and procedure very well. SHEEBA Mendieta/ANI /[id number]
== END | disposition home or self-care (01) ==
LOC: OR 06:08
PROVIDERS: ATTEND Podiatrist Foot Surgery
DX: M72.2 Plantar fascial fibromatosis (principal); M77.31 Calcaneal spur, right foot; G47.33 Obstructive sleep apnea (adult) (pediatric); E11.9 Type 2 diabetes mellitus without complications; I25.10 Atherosclerotic heart disease of native coronary artery without angina pectoris; I25.2 Old myocardial infarction; I11.0 Hypertensive heart disease with heart failure; I50.9 Heart failure, unspecified; Z79.02 Long term (current) use of antithrombotics/antiplatelets; Z79.82 Long term (current) use of aspirin; Z79.84 Long term (current) use of oral hypoglycemic drugs; Z95.5 Presence of coronary angioplasty implant and graft
CPT/HCPCS: 28104; 29893; 36415 ×2; 71046; 80048; 82948; 85025; 93005; J0690; J1100; J2001; J2250; J2405; J2704; J2710; J3010; Q4100; 76000

== ENCOUNTER 2019-05-23 00:31 | Emergency (ER) | payer MEDICARE, OTHER ==
[~2019-05-23] VITALS: Ht 170.2 cm; Wt 103.4 kg
[~2019-05-23 00:31] MED LIST changes: -BUPIVACAINE HCL 0.5% INJ 30 ML VIAL INJ ONE; -DEXAMETHASONE SOD PHOS INJ 4 MG/ML VIAL ONE; -FENTANYL CITRATE/PF 100MCG/2 ML INJ ONE; -LIDOCAINE HCL 2% LOCAL INJ 5 ML SDV VIAL INJ ONE; -MIDAZOLAM HCL 2 MG/2 ML VIAL ONE; -NEOSTIGMINE 1 MG/ML 10ML VIAL ONE; -ONDANSETRON HCL INJ 2MG/ML 2ML 2 MG/ML VIAL ONE; -PROPOFOL IV EMULSION 10 MG/ML 20 ML VIAL ONE; -SEVOFLURANE INHAL SOLN 250 ML PEN BTL ONE
[2019-05-23] MEDS ORDERED: ONDANSETRON HCL INJ 2MG/ML 2ML 2 MG/ML VIAL IV STA (00:35)
[2019-05-23] MEDS ORDERED: PANTOPRAZOLE 40 MG 10ML VIAL IV STA (00:35)
[2019-05-23] MEDS ORDERED: MORPHINE SULFATE 2 MG/ML SYR 1ML IV STA (00:35)
[2019-05-23] MEDS ORDERED: DICYCLOMINE HCL 20 MG/2 ML VIAL IM ONE (00:45)
[2019-05-23 01:02] LABS: BASOPHILS % 0.2 % (0.0-1.0); EOSINOPHILS % 0.1 % (0.0-6.0); HEMATOCRIT 43.2 % (38.2-49.6); HEMOGLOBIN 14.6 g/dL (14.0-18.0); LYMPHOCYTES # (AUTO) 1.5 (1.0-3.2); LYMPHOCYTES % 10.7 % (18.0-39.1); MEAN CORPUSCULAR HEMOGLOBIN 31.1 pg (28-32); MEAN CORPUSCULAR HGB CONC 33.8 g/dL (31-35); MEAN CORPUSCULAR VOLUME 91.9 fL (81-99); MONOCYTES # (AUTO) 0.9 (0.2-0.8); MONOCYTES % 6.5 % (4.4-11.3); NEUTROPHILS # (AUTO) 11.7 (2.1-6.9); PLATELET COUNT 245 x10e3/uL (140-360); RED CELL DISTRIBUTION WIDTH 13.1 % (11.7-14.4)
[2019-05-23 01:05] LABS: BILIRUBIN,URINE NEGATIVE (NEGATIVE); CLARITY,URINE CLEAR (CLEAR); COLOR,URINE YELLOW (YELLOW); KETONES,URINE NEGATIVE (NEGATIVE); LEUKOCYTE ESTERASE ,URINE NEGATIVE (NEGATIVE); NITRITE,URINE NEGATIVE (NEGATIVE); PROTEIN,URINE DIPSTICK NEGATIVE (NEGATIVE); URINE UROBILINOGEN 0.2 mg/dL (0.2 - 1)
[2019-05-23 01:16] LABS: ALANINE AMINOTRANSFERASE 23 IU/L (0-55); ALBUMIN 3.8 g/dL (3.5-5.0); ALKALINE PHOSPHATASE 94 IU/L (40-150); ANION GAP 16.2 mmol/L (8-16); BLOOD UREA NITROGEN 14 mg/dL (7-26); BUN/CREATININE RATIO 13 (6-25); CALCIUM 9.7 mg/dL (8.4-10.2); CARBON DIOXIDE 23 mmol/L (22-29); CHLORIDE 97 mmol/L (98-107); CREATINE KINASE 86 IU/L (30-200); CREATININE, SERUM 1.11 mg/dL (0.72-1.25); EST GLOMERULAR FILTRATION RATE > 60 ML/MIN (60-); GLUCOSE 168 mg/dL (74-118); POTASSIUM 4.2 mmol/L (3.5-5.1); SODIUM 132 mmol/L (136-145)
[2019-05-23 01:17] LABS: AMYLASE 144 U/L (25-125); LIPASE 13 U/L (8-78)
[2019-05-23 01:22] LABS: BACTERIA,URINE FEW /HPF; EPITHELIAL CELLS,URINE FEW /LPF; MUCUS,URINE FEW (RARE)
--- NOTE | 2019-05-23 02:16 | Diagnostic Imaging Report ---
HISTORY: Right upper quadrant pain ^ruq pain TECHNIQUE: Selected images from limited abdominal ultrasound provided for INTERPRETATION: COMPARISON: CT chest 01/15/2018. FINDINGS: Pancreas: Poorly visualized due to bowel gas. Liver: Measures 16.0 cm in sagittal plane. The echotexture is increased. No mass in the visualized portions. Portal Vein: Measures 0.7 cm. Proper directional flow on spectral Doppler interrogation. Intrahepatic bile ducts: Normal Gallbladder: Present. Stone in the gallbladder neck measures 9 mm. No gallbladder wall thickening or pericholecystic fluid. Sonographic Quintanilla sign is negative. CBD: 0.3 cm. Right Kidney: 11.3 cm in greatest length. The echotexture is normal. There is no evidence for mass. There is no collecting system dilatation or evidence of obstruction. No renal calculi evident. No adjacent free fluid or fluid collections. The aorta and IVC are poorly visualized due to bowel gas. There is no free fluid. IMPRESSION: Cholelithiasis. No sonographic evidence of acute cholecystitis. No biliary ductal dilatation. Steatosis. Signed by: Dr. Rodriguez Alejandro MD on 05/23/2019 2:13 AM
[2019-05-23 03:37] VITALS: BP 128/68
== END 2019-05-23 03:58 | disposition home or self-care (01) ==
LOC: ER 00:31
DX: R10.11 Right upper quadrant pain (principal); R10.13 Epigastric pain; R11.2 Nausea with vomiting, unspecified; K80.70 Calculus of gallbladder and bile duct without cholecystitis without obstruction; I10 Essential (primary) hypertension; E11.9 Type 2 diabetes mellitus without complications; E78.5 Hyperlipidemia, unspecified; I25.2 Old myocardial infarction
CPT/HCPCS: 36415; 76705; 80053; 81001; 82150; 82550; 82553; 83690; 84484; 85025; 93005; 96372; 96374; 99284; C9113; J0500; J2270; J2405

== ENCOUNTER → 2019-06-01 | Outpatient (CLI) | payer MEDICARE ==
[~2019-06-01] MED LIST changes: +DIATRIZOATE MEGL/DIATRIZOA SOD 30 ML BTL PO ONE; +IOPAMIDOL 370 MG/ML 200 ML INFUS..BTL INJ ONE; +SODIUM CHLORIDE 0.9% 50ML 50 ML ONE
[2019-06-01 11:22] LABS: BLOOD UREA NITROGEN 13 mg/dL (7-26); BUN/CREATININE RATIO 13 (6-25); CREATININE, SERUM 1.04 mg/dL (0.72-1.25); EST GLOMERULAR FILTRATION RATE > 60 ML/MIN (60-)
--- NOTE | 2019-06-01 12:40 | Diagnostic Imaging Report ---
CT of the abdomen, with contrast, 06/01/2019. History: Upper abdominal pain. Comparison: Ultrasound 05/23/2019. Technique: Multidetector CT scanning of the abdomen was performed from the level of the lung bases to the iliac crests after intravenous and oral administration of contrast. Coronal and sagittal multiplanar reformations were obtained. RADIATION DOSE: Total DLP: 522 mGy*cm Dose modulation, iterative reconstruction, and/or weight based adjustment of the mA/kV was utilized to reduce the radiation dose to as low as reasonably achievable. Discussion: LUNG BASES: No visualized abnormalities. ABDOMEN: Small stones are noted within the gallbladder. The liver, biliary tree, spleen, pancreas, adrenal glands, and kidneys are normal. The hepatic vein, portal vein, and splenic vein are patent. The abdominal aorta is within normal limits for size. The stomach and visualized bowel are unremarkable. The appendix appears prominent but is air-filled without evidence of adjacent inflammation. There is no evidence of adenopathy or free fluid. BONES AND SOFT TISSUES: Degenerative changes are present throughout the lumbar spine without evidence of lytic or sclerotic lesion. IMPRESSION: Cholelithiasis. Otherwise unremarkable exam. Signed by: Lc Polanco on 06/01/2019 12:37 PM
== END ==
LOC: CT 10:16
PROVIDERS: ATTEND Surgery
DX: R10.9 Unspecified abdominal pain (principal); K80.80 Other cholelithiasis without obstruction
CPT/HCPCS: 36415; 74160; 82565; 84520; Q9967

== ENCOUNTER → 2021-05-15 | Outpatient (CLI) | payer MEDICARE ==
[2021-05-15 13:04] LABS: CREATININE, SERUM 1.2 mg/dL (0.72-1.25)
== END ==
LOC: CT 11:30
PROVIDERS: ATTEND Family Medicine
DX: R10.31 Right lower quadrant pain (principal)
CPT/HCPCS: 36415; 74177; 82565; 84520; Q9967

== ENCOUNTER → 2024-02-08 | Day surgery (SDC) | payer MEDICARE ==
[2024-02-01 09:24] LABS: BASOPHILS % 0.3 % (0.0-1.0); EOSINOPHILS # (AUTO) 0.1 (0.0-0.4); EOSINOPHILS % 1.2 % (0.0-6.0); HEMATOCRIT 42.7 % (38.2-49.6); HEMOGLOBIN 14.3 g/dL (14.0-18.0); LYMPHOCYTES # (AUTO) 1.7 (1.0-3.2); LYMPHOCYTES % 18.6 % (18.0-39.1); MEAN CORPUSCULAR HEMOGLOBIN 32.4 pg (28-32); MEAN CORPUSCULAR HGB CONC 33.5 g/dL (31-35); MEAN CORPUSCULAR VOLUME 96.6 fL (81-99); MONOCYTES # (AUTO) 0.9 (0.2-0.8); MONOCYTES % 9.3 % (4.4-11.3); NEUTROPHILS # (AUTO) 6.4 (2.1-6.9); NEUTROPHILS % 70.2 % (38.7-80.0); PLATELET COUNT 233 x10e3/uL (140-360); RED BLOOD COUNT 4.42 x10e6/uL (4.3-5.7); RED CELL DISTRIBUTION WIDTH 13.3 % (11.7-14.4); WHITE BLOOD COUNT 9.14 x10e3/uL (4.8-10.8)
[2024-02-01 10:00] LABS: ALBUMIN 3.7 g/dL (3.5-5.0); ANION GAP 12.5 mmol/L (8-16); BILIRUBIN,TOTAL 0.3 mg/dL (0.2-1.2); CALCIUM 9.5 mg/dL (8.4-10.2); CREATININE, SERUM 1.15 mg/dL (0.72-1.25); POTASSIUM 4.5 mmol/L (3.5-5.1); TOTAL PROTEIN 7.3 g/dL (6.5-8.1)
[2024-02-01 11:19] LABS: CHOL/HDL RATIO 2.6 (3.9-4.7)
[2024-02-08] VITALS (14 sets, daily range): BP systolic 104–157; BP diastolic 63–86; PULSE 62–80; RESP 10–19; TEMP 95.3–96.3; O2SAT 96–100
[~2024-02-08] VITALS: Ht 167.6 cm; Wt 98.9 kg
[~2024-02-08] MED LIST changes: +ALDACTONE50 MG PO; +ASPIR 8181 MG PO; +BENADRYL ITCH28.3 GM TOP; +BYDUREON B2 MG/0.85; +CETIRIZINE HCL10 MG; +CIPRO500 MG PO; +CLOPIDOGREL75 MG PO; -DIATRIZOATE MEGL/DIATRIZOA SOD 30 ML BTL PO ONE; +ENTRESTO 49 MG1 EACH PO; +FENTANYL CITRATE/PF 100MCG/2 ML INJ ONE; +FISH OIL 1,0001 EAC6 PO; +FISH OIL 1,0001 EAC7 PO; +FLONASE ALLERG9.9 ML INH; +HEPARIN SOD (PORCINE) 1000 UNIT/ML 30ML ONE; +HEPARIN SOD/SOD CHLORIDE 2,000 ML ONE; +IOPAMIDOL 370 MG/ML 100 ML INFUS..BTL INJ ONE; -IOPAMIDOL 370 MG/ML 200 ML INFUS..BTL INJ ONE; +JARDIANCE25 MG PO; +LIDOCAINE HCL 2% LOCAL 20 ML VIAL ONE; +LYRICA75 MG PO; +METFORMIN HCL500 MG PO; +MIDAZOLAM HCL 2 MG/2 ML VIAL ONE; +MINOCYCLINE HCL50 MG PO; +NEURONTIN300 MG PO; +NITROGLYCERIN/D5W 200 MCG/ML 250 ML ONE; +OZEMPIC2 MG/0.75; +PANTOPRAZOLE SO40 MG PO; +PAXLOVID 300-11 EAC1; +PRAVASTATIN SOD80 MG; +SODIUM CHLORIDE 0.9% 1000ML 1,000 ML ONE; -SODIUM CHLORIDE 0.9% 50ML 50 ML ONE; +TRADJENTA5 MG PO; +TYLENOL325 MG PO; +VERAPAMIL HCL 2.5 MG/ML 2 ML VIAL ONE; +VITAMIN D250 MCG PO; +VITAMIN D3 COM1 EACH PO
[2024-02-08] MEDS: ALPRAZOLAM 0.5 MG TAB ONE (08:00)
[2024-02-08] MEDS: DIPHENHYDRAMINE HCL 25 MG CAP ONE (08:00)
== END | disposition home or self-care (01) ==
LOC: CATH LAB 06:36
PROVIDERS: ATTEND Internal Medicine
DX: I25.10 Atherosclerotic heart disease of native coronary artery without angina pectoris (principal); R94.39 Abnormal result of other cardiovascular function study; I25.2 Old myocardial infarction; I11.0 Hypertensive heart disease with heart failure; I50.9 Heart failure, unspecified; E78.00 Pure hypercholesterolemia, unspecified; E11.9 Type 2 diabetes mellitus without complications; M19.049 Primary osteoarthritis, unspecified hand; Z01.812 Encounter for preprocedural laboratory examination; Z79.02 Long term (current) use of antithrombotics/antiplatelets; Z68.35 Body mass index [BMI] 35.0-35.9, adult
CPT/HCPCS: 36415; 76937; 80053; 80061; 83880; 85025; 93458; C1769; C1887 ×2; J1644; J2001; J2250; J3010; J7030; Q9967; 99152

== ENCOUNTER 2025-03-01 00:16 | Inpatient (IN) | payer MEDICARE ==
[~2025-03-01] VITALS: Ht 170.2 cm; Wt 93.4 kg
[~2025-03-01 00:16] MED LIST changes: -FENTANYL CITRATE/PF 100MCG/2 ML INJ ONE; -HEPARIN SOD (PORCINE) 1000 UNIT/ML 30ML ONE; -HEPARIN SOD/SOD CHLORIDE 2,000 ML ONE; -IOPAMIDOL 370 MG/ML 100 ML INFUS..BTL INJ ONE; -LIDOCAINE HCL 2% LOCAL 20 ML VIAL ONE; -MIDAZOLAM HCL 2 MG/2 ML VIAL ONE; -NITROGLYCERIN/D5W 200 MCG/ML 250 ML ONE; -SODIUM CHLORIDE 0.9% 1000ML 1,000 ML ONE; -VERAPAMIL HCL 2.5 MG/ML 2 ML VIAL ONE
[2025-03-01 00:39] LABS: BASOPHILS % 0.4 % (0.0-1.0); EOSINOPHILS % 1.7 % (0.0-6.0); LYMPHOCYTES % 21.0 % (18.0-39.1); MONOCYTES % 9.7 % (4.4-11.3); NEUTROPHILS % 66.9 % (38.7-80.0); RED CELL DISTRIBUTION WIDTH 12.7 % (11.7-14.4)
[2025-03-01] MEDS ORDERED: Morphine 4mg INJECTION 4 MG/ML INJ IV PRN (01:00)
[2025-03-01] MEDS ORDERED: ONDANSETRON HCL INJ 2MG/ML 2ML 2 MG/ML VIAL IV PRN (01:00)
[2025-03-01 04:53] LABS: EST GLOMERULAR FILTRATION RATE 71.0 ML/MIN (>=60)
[2025-03-01 04:57] VITALS: PULSE 75; RESP 16; O2SAT 98
[2025-03-01] MEDS ORDERED: OZEMPIC2 MG/0.75 SC (07:30)
[2025-03-01] MEDS ORDERED: GLIMEPIRIDE2 MG PO (07:30)
[2025-03-01] MEDS ORDERED: ETODOLAC200 MG PO (07:30)
[2025-03-01] MEDS ORDERED: FISH OIL 1,001000 M1 PO (07:30)
[2025-03-01] MEDS ORDERED: SIMETHICONE 80 MG CHEW PO PRN (12:30)
[2025-03-01] MEDS ORDERED: POTASSIUM CHLORIDE 20 MEQ TAB CR PO PRN (12:30)
[2025-03-01] MEDS ORDERED: ACETAMINOPHEN 325 MG TAB PO PRN (12:30)
[2025-03-01] MEDS ORDERED: DOCUSATE SODIUM 100 MG CAP PO PRN (12:30)
[2025-03-01] MEDS ORDERED: ALBUTEROL/IPRATROPIUM 3 ML NEB NEB PRN (12:30)
[2025-03-01] MEDS ORDERED: DIPHENHYDRAMINE HCL 25 MG CAP PO PRN (12:30)
[2025-03-01] MEDS ORDERED: HYDRALAZINE HCL 20 MG/ML VIAL IV PRN (12:30)
[2025-03-01] MEDS ORDERED: MELATONIN 5 MG TABLET PO PRN (12:30)
[2025-03-01] MEDS ORDERED: DEXTROSE 50% SYRINGE 50 ML IV PRN ×3 (12:30→16:45)
[2025-03-01] MEDS ORDERED: BENZONATATE 100 MG CAP PO PRN (12:30)
[2025-03-01] MEDS ORDERED: IOPAMIDOL 370 MG/ML 100 ML INFUS..BTL INJ ONE (14:04)
[2025-03-01] MEDS ORDERED: METOPROLOL TARTRATE 25 MG TAB PO SCH (17:00)
[2025-03-01] MEDS ORDERED: ENOXAPARIN SOD INJ 40 MG/0.4 ML SYR SC SCH (17:00)
[2025-03-01] MEDS ORDERED: INSULIN LISPRO 100 UNIT/1 ML 3ML VIAL SQ SCH (17:45)
[2025-03-01 18:15] VITALS: PULSE 86; RESP 16; TEMP 98.2
[2025-03-01 20:00] VITALS: BP 141/77; PULSE 69; RESP 17; TEMP 98.7; O2SAT 100
[2025-03-01] MEDS: ATORVASTATIN 40 MG TAB PO SCH (21:35)
[2025-03-01] MEDS: METOPROLOL TARTRATE 25 MG TAB PO SCH (21:35)
[2025-03-01] MEDS: ENOXAPARIN SOD INJ 40 MG/0.4 ML SYR SC SCH (21:36)
[2025-03-01] MEDS: INSULIN LISPRO 100 UNIT/1 ML 3ML VIAL SQ SCH (21:44)
[2025-03-01 21:48] VITALS: BP 141/77; PULSE 69; RESP 17; TEMP 98.7; O2SAT 100
[2025-03-01 21:49] VITALS: BP 141/77; PULSE 69; RESP 17; TEMP 98.7; O2SAT 100
[2025-03-02] VITALS (18 sets, daily range): BP systolic 92–139; BP diastolic 56–83; PULSE 60–71; RESP 10–20; TEMP 97.4–98.7; O2SAT 94–100
[2025-03-02 06:48] LABS: BASOPHILS % 0.4 % (0.0-1.0); EOSINOPHILS % 3.4 % (0.0-6.0); LYMPHOCYTES % 24.5 % (18.0-39.1); MONOCYTES % 9.3 % (4.4-11.3); NEUTROPHILS % 62.1 % (38.7-80.0); RED CELL DISTRIBUTION WIDTH 12.8 % (11.7-14.4)
[2025-03-02 07:15] LABS: EST GLOMERULAR FILTRATION RATE 81.0 ML/MIN (>=60)
[2025-03-02 07:32] LABS: CHOL/HDL RATIO 4.5 (3.9-4.7); LDL CHOLESTEROL 51.0 MG/DL (60-130)
[2025-03-02] MEDS: ASPIRIN 81 MG CHEW TAB PO SCH (08:08)
[2025-03-02] MEDS: PANTOPRAZOLE SOD 40 MG TABEC PO SCH (08:08)
[2025-03-02] MEDS ORDERED: HEPARIN 25,000 UNIT/D5W 250ML 25,000 UNIT in DEXTROSE 5% 250ML 250 ML IV SCH (09:45)
[2025-03-02 10:29] LABS: INR 0.89
[2025-03-02] MEDS: HEPARIN SOD (PORCINE) 5,000 UNIT/ML VIAL IV ONE (10:44)
[2025-03-02] MEDS: HEPARIN 25,000 UNIT/D5W 250ML 250 ML IV SCH (10:45)
[2025-03-02] MEDS ORDERED: APIXABAN 5 MG TABLET PO SCH (17:00)
[2025-03-02] MEDS: APIXABAN 5 MG TABLET PO SCH (17:25)
[2025-03-03] VITALS (12 sets, daily range): BP systolic 99–125; BP diastolic 62–82; PULSE 68–76; RESP 16–18; TEMP 97.9–98.9; O2SAT 95–100
[2025-03-03 05:31] LABS: BASOPHILS % 0.5 % (0.0-1.0); EOSINOPHILS % 3.6 % (0.0-6.0); LYMPHOCYTES % 20.1 % (18.0-39.1); MONOCYTES % 9.1 % (4.4-11.3); NEUTROPHILS % 66.3 % (38.7-80.0); RED CELL DISTRIBUTION WIDTH 12.6 % (11.7-14.4)
[2025-03-03 05:48] LABS: EST GLOMERULAR FILTRATION RATE 81.0 ML/MIN (>=60)
[2025-03-03] MEDS: MIDAZOLAM HCL 2 MG/2 ML VIAL ONE (08:30)
[2025-03-03] MEDS: FENTANYL CITRATE/PF 100MCG/2 ML INJ ONE (08:30)
[2025-03-03] MEDS: VERAPAMIL HCL 2.5 MG/ML 2 ML VIAL ONE (08:31)
[2025-03-03] MEDS: HEPARIN SOD (PORCINE) 1000 UNIT/ML 30ML ONE (08:31)
[2025-03-03] MEDS: SODIUM CHLORIDE 0.9% 1000ML 1,000 ML ONE (08:31)
[2025-03-03] MEDS: IOPAMIDOL 370 MG/ML 100 ML INFUS..BTL INJ ONE (08:31)
[2025-03-03] MEDS: LIDOCAINE HCL 2% LOCAL 20 ML VIAL ONE (08:31)
[2025-03-03] MEDS: NITROGLYCERIN/D5W 200 MCG/ML 0 ML ONE (08:31)
[2025-03-03] MEDS: HEPARIN SOD/SOD CHLORIDE 2,000 ML ONE (08:32)
[2025-03-03] MEDS: GLIMEPIRIDE 2 MG TAB PO SCH (09:00)
[2025-03-03] MEDS ORDERED: APIXABAN 5 MG TABLET PO SCH (09:00)
[2025-03-03] MEDS: WARFARIN SOD 3 MG TAB PO ONE (17:48)
[2025-03-03] MEDS: ENOXAPARIN SODIUM INJ 100 MG/ML SYR SC SCH (21:56)
[2025-03-04] VITALS (9 sets, daily range): BP systolic 105–128; BP diastolic 61–72; PULSE 60–95; RESP 16–18; TEMP 97.6–98.6; O2SAT 96–100
[2025-03-04 06:59] LABS: BASOPHILS % 0.6 % (0.0-1.0); EOSINOPHILS % 2.5 % (0.0-6.0); LYMPHOCYTES % 23.0 % (18.0-39.1); MONOCYTES % 9.0 % (4.4-11.3); NEUTROPHILS % 64.6 % (38.7-80.0); RED CELL DISTRIBUTION WIDTH 12.7 % (11.7-14.4)
[2025-03-04 07:28] LABS: INR 0.95
[2025-03-04 07:41] LABS: EST GLOMERULAR FILTRATION RATE 70.0 ML/MIN (>=60)
[2025-03-04] MEDS: FUROSEMIDE INJ 10 MG/ML 4 ML VIAL IV ONE (16:29)
[2025-03-04] MEDS: WARFARIN SOD 3 MG TAB PO ONE (16:29)
[2025-03-05] VITALS (11 sets, daily range): BP systolic 104–136; BP diastolic 51–80; PULSE 72–78; RESP 16–18; TEMP 97.7–98.8; O2SAT 96–100
[2025-03-05 08:16] LABS: BASOPHILS % 0.5 % (0.0-1.0); EOSINOPHILS % 2.8 % (0.0-6.0); LYMPHOCYTES % 22.9 % (18.0-39.1); MONOCYTES % 10.0 % (4.4-11.3); NEUTROPHILS % 63.4 % (38.7-80.0); RED CELL DISTRIBUTION WIDTH 12.6 % (11.7-14.4)
[2025-03-05 08:22] LABS: INR 1.11
[2025-03-05 08:24] LABS: EST GLOMERULAR FILTRATION RATE 72.0 ML/MIN (>=60)
[2025-03-05] MEDS: WARFARIN SOD 5 MG TAB PO ONE (16:31)
[2025-03-06] VITALS (11 sets, daily range): BP systolic 99–138; BP diastolic 50–80; PULSE 62–78; RESP 16–18; TEMP 97.7–98.6; O2SAT 94–100
[2025-03-06 07:16] LABS: BASOPHILS % 0.3 % (0.0-1.0); EOSINOPHILS % 2.5 % (0.0-6.0); LYMPHOCYTES % 20.6 % (18.0-39.1); MONOCYTES % 9.9 % (4.4-11.3); NEUTROPHILS % 66.4 % (38.7-80.0); RED CELL DISTRIBUTION WIDTH 12.7 % (11.7-14.4)
[2025-03-06 07:20] LABS: INR 1.49
[2025-03-06 07:30] LABS: EST GLOMERULAR FILTRATION RATE 67.0 ML/MIN (>=60)
[2025-03-06] MEDS: WARFARIN SOD 2.5 MG TAB PO ONE (16:12)
[2025-03-07] VITALS (9 sets, daily range): BP systolic 99–147; BP diastolic 58–86; PULSE 66–76; RESP 14–18; TEMP 97.6–98.4; O2SAT 94–100
[2025-03-07 06:37] LABS: BASOPHILS % 0.3 % (0.0-1.0); EOSINOPHILS % 2.4 % (0.0-6.0); LYMPHOCYTES % 22.2 % (18.0-39.1); MONOCYTES % 10.1 % (4.4-11.3); NEUTROPHILS % 64.7 % (38.7-80.0); RED CELL DISTRIBUTION WIDTH 12.7 % (11.7-14.4)
[2025-03-07 06:56] LABS: INR 2.01
[2025-03-07 07:09] LABS: EST GLOMERULAR FILTRATION RATE 81.0 ML/MIN (>=60)
[2025-03-07] MEDS: WARFARIN SOD 5 MG TAB PO ONE (17:05)
[2025-03-08] VITALS (7 sets, daily range): BP systolic 106–147; BP diastolic 53–82; PULSE 66–70; RESP 16–19; TEMP 97.7–98.4; O2SAT 96–100
[2025-03-08 06:37] LABS: INR 2.1
[2025-03-08] MEDS: WARFARIN SOD 3 MG TAB PO SCH (17:01)
== END 2025-03-08 18:00 | disposition home or self-care (01) | DRG 287 ==
LOC: ER 00:23 → ERHOLD 00:48 → MED/SURG3 18:58 → OBSVTOIN 03-03 01:32
PROVIDERS: ADMIT Internal Medicine; ATTEND Internal Medicine
PROC: B2111ZZ Fluoroscopy of Multiple Coronary Arteries using Low Osmolar Contrast (ICD-10-PCS; principal; 2025-03-02)
DX: I51.3 Intracardiac thrombosis, not elsewhere classified (principal); I25.10 Atherosclerotic heart disease of native coronary artery without angina pectoris; R07.81 Pleurodynia; E11.9 Type 2 diabetes mellitus without complications; I10 Essential (primary) hypertension; E78.5 Hyperlipidemia, unspecified; E66.01 Morbid (severe) obesity due to excess calories; Z68.32 Body mass index [BMI] 32.0-32.9, adult; Z79.01 Long term (current) use of anticoagulants; Z79.02 Long term (current) use of antithrombotics/antiplatelets; Z79.82 Long term (current) use of aspirin; Z79.51 Long term (current) use of inhaled steroids; Z79.84 Long term (current) use of oral hypoglycemic drugs; Z79.85 Long-term (current) use of injectable non-insulin antidiabetic drugs; I25.2 Old myocardial infarction; Z95.5 Presence of coronary angioplasty implant and graft; Z90.49 Acquired absence of other specified parts of digestive tract; Z91.013 Allergy to seafood
CPT/HCPCS: 36415; 71045; 71260; 76937; 80048; 80053; 80061; 82550; 82948; 83036; 83690; 83735; 83880; 84443; 84484; 85025; 85610; 85730; 93005; 93306; 93454; 94799; 99152; 99284; C1769; C1887; G0378; J1644; J1650; J1938; J2003; J2250; J2470; J7030; Q9967

== ENCOUNTER 2025-04-16 21:43 | Inpatient (IN) | payer MEDICARE ==
[~2025-04-16] VITALS: Ht 170.2 cm; Wt 88.5 kg
[~2025-04-16 21:43] MED LIST changes: +ETODOLAC200 MG PO; +FISH OIL 1,001000 M1 PO; +GLIMEPIRIDE2 MG PO; +OZEMPIC2 MG/0.75 SC
[2025-04-16 22:24] LABS: BASOPHILS % 0.2 % (0.0-1.0); EOSINOPHILS % 0.0 % (0.0-6.0); LYMPHOCYTES % 3.5 % (18.0-39.1); MONOCYTES % 6.4 % (4.4-11.3); NEUTROPHILS % 89.2 % (38.7-80.0); RED CELL DISTRIBUTION WIDTH 13.1 % (11.7-14.4)
[2025-04-16] MEDS: ACETAMINOPHEN 325 MG TAB PO ONE (22:32)
[2025-04-16 22:41] LABS: EST GLOMERULAR FILTRATION RATE 58.0 ML/MIN (>=60)
[2025-04-16 22:42] LABS: INR 2.85
[2025-04-16] MEDS ORDERED: IOPAMIDOL 370 MG/ML 100 ML INFUS..BTL INJ ONE (22:58)
[2025-04-16 23:56] LABS: LEUKOCYTE ESTERASE ,URINE NEGATIVE (NEGATIVE); PROTEIN,URINE DIPSTICK NEGATIVE (NEGATIVE); URINE UROBILINOGEN 0.2 mg/dL (0.2 - 1)
[2025-04-17] VITALS (7 sets, daily range): BP systolic 122; BP diastolic 75; PULSE 77–87; RESP 13–23; TEMP 98.2–98.7; O2SAT 96–100
[2025-04-17 01:35] LABS: CORONAVIRUS COVID-19 AG NEGATIVE (NEGATIVE)
[2025-04-17] MEDS ORDERED: DEXTROSE 50% SYRINGE 50 ML IV PRN ×3 (02:15→17:30)
[2025-04-17] MEDS ORDERED: ACETAMINOPHEN 325 MG TAB PO PRN ×2 (02:15→13:15)
[2025-04-17] MEDS: SODIUM CHLORIDE 0.9% 1000ML 1,000 ML IV ONE (03:14)
[2025-04-17] MEDS: ALBUTEROL SULF 0.083% NEB SOLN 3 ML NEB NEB SCH (03:19)
[2025-04-17] MEDS ORDERED: SODIUM CHLORIDE 0.9% 1000ML 1,000 ML ONE (06:07)
[2025-04-17] MEDS: IPRATROPIUM BROMIDE 0.02% 2.5 ML NEB NEB SCH (07:25)
[2025-04-17] MEDS: INSULIN REGULAR, HUMAN 100 UNIT/1 ML SQ SCH (07:30)
[2025-04-17] MEDS ORDERED: BENZONATATE 100 MG CAP PO PRN (13:15)
[2025-04-17] MEDS ORDERED: DOCUSATE SODIUM 100 MG CAP PO PRN (13:15)
[2025-04-17] MEDS ORDERED: SIMETHICONE 80 MG CHEW PO PRN (13:15)
[2025-04-17] MEDS ORDERED: ONDANSETRON HCL INJ 2MG/ML 2ML 2 MG/ML VIAL IV PRN (13:15)
[2025-04-17] MEDS ORDERED: TRAMADOL HCL 50 MG TAB PO PRN (13:15)
[2025-04-17] MEDS ORDERED: POTASSIUM CHLORIDE 20 MEQ TAB CR PO PRN (13:15)
[2025-04-17] MEDS ORDERED: HYDRALAZINE HCL 20 MG/ML VIAL IV PRN (13:15)
[2025-04-17] MEDS ORDERED: DIPHENHYDRAMINE HCL 25 MG CAP PO PRN (13:15)
[2025-04-17] MEDS ORDERED: ALBUTEROL/IPRATROPIUM 3 ML NEB NEB PRN (13:15)
[2025-04-17] MEDS ORDERED: LIDOCAINE 4% PATCH TP PRN (13:15)
[2025-04-17] MEDS: ENOXAPARIN SOD INJ 40 MG/0.4 ML SYR SC SCH (17:00)
[2025-04-17] MEDS ORDERED: WARFARIN SODIUM5 MG PO (17:29)
[2025-04-17] MEDS ORDERED: SPIRONOLACTONE50 MG PO (17:29)
[2025-04-17] MEDS: WARFARIN SOD 5 MG TAB PO SCH (18:53)
[2025-04-17] MEDS: INSULIN LISPRO 100 UNIT/1 ML 3ML VIAL SQ SCH (21:00)
[2025-04-17] MEDS ORDERED: MELATONIN 5 MG TABLET PO PRN (21:00)
[2025-04-17] MEDS: GABAPENTIN 300 MG CAP PO SCH (21:47)
[2025-04-17] MEDS: PRAVASTATIN 20 MG TAB PO SCH (21:48)
[2025-04-18] VITALS (13 sets, daily range): BP systolic 97–125; BP diastolic 58–70; PULSE 65–92; RESP 16–20; TEMP 97.3–98.8; O2SAT 96–100
[2025-04-18 06:14] LABS: BASOPHILS % 0.5 % (0.0-1.0); EOSINOPHILS % 2.8 % (0.0-6.0); LYMPHOCYTES % 14.1 % (18.0-39.1); MONOCYTES % 8.6 % (4.4-11.3); NEUTROPHILS % 73.6 % (38.7-80.0); RED CELL DISTRIBUTION WIDTH 13.6 % (11.7-14.4)
[2025-04-18 06:32] LABS: INR 2.81
[2025-04-18 06:38] LABS: EST GLOMERULAR FILTRATION RATE 65.0 ML/MIN (>=60); PHOSPHORUS 4.2 MG/DL (2.3-4.7)
[2025-04-18] MEDS: SODIUM CHLORIDE 0.9% 250ML 250 ML ONE (08:20)
[2025-04-18] MEDS: NON-FORMULARY MEDICATION (Empagliflozin (Jardiance) 25 MG) PO SCH (09:00)
[2025-04-18] MEDS: ASPIRIN 81 MG CHEW TAB PO SCH (09:49)
[2025-04-18] MEDS: SACUBITRIL49MG/VALSARTAN51MG 1 EACH TABLET PO SCH (09:49)
[2025-04-18] MEDS: METOPROLOL TARTRATE 25 MG TAB PO SCH (09:50)
[2025-04-18] MEDS: PANTOPRAZOLE SOD 40 MG TABEC PO SCH (09:50)
[2025-04-18] MEDS: FUROSEMIDE 40 MG TAB PO SCH (09:53)
[2025-04-18] MEDS: KETOROLAC TROMETHAMINE 30 MG/ML VIAL IV STA (16:00)
[2025-04-18] MEDS: OMEGA 3 POLYUNSAT FATTY ACIDS 1000 MG SOFTGEL PO SCH (17:10)
[2025-04-19] VITALS (11 sets, daily range): BP systolic 96–110; BP diastolic 55–72; PULSE 63–83; RESP 18–20; TEMP 97.8–98.1; O2SAT 95–100
[2025-04-19 05:33] LABS: BASOPHILS % 0.5 % (0.0-1.0); EOSINOPHILS % 4.5 % (0.0-6.0); LYMPHOCYTES % 17.8 % (18.0-39.1); MONOCYTES % 9.2 % (4.4-11.3); NEUTROPHILS % 67.7 % (38.7-80.0); RED CELL DISTRIBUTION WIDTH 13.6 % (11.7-14.4)
[2025-04-19 06:01] LABS: EST GLOMERULAR FILTRATION RATE 64.0 ML/MIN (>=60)
[2025-04-19] MEDS: SODIUM CHLORIDE 0.9% 250ML 250 ML ONE (07:32)
[2025-04-19 16:23] LABS: INR 2.42
[2025-04-20] VITALS (7 sets, daily range): BP systolic 94–111; BP diastolic 61–69; PULSE 71–81; RESP 18–20; TEMP 97.6–98.7; O2SAT 97–100
== END 2025-04-20 12:10 | disposition home or self-care (01) | DRG 872 ==
LOC: ER 22:05 → ERHOLD 04-17 02:07 → MED/SURG2 04-17 20:28
PROVIDERS: ADMIT Internal Medicine; ATTEND Internal Medicine
DX: A41.9 Sepsis, unspecified organism (principal); I50.22 Chronic systolic (congestive) heart failure; I82.511 Chronic embolism and thrombosis of right femoral vein; I51.3 Intracardiac thrombosis, not elsewhere classified; I11.0 Hypertensive heart disease with heart failure; Z79.01 Long term (current) use of anticoagulants; M79.651 Pain in right thigh; R59.0 Localized enlarged lymph nodes; D72.828 Other elevated white blood cell count; I25.10 Atherosclerotic heart disease of native coronary artery without angina pectoris; Z95.5 Presence of coronary angioplasty implant and graft; E11.42 Type 2 diabetes mellitus with diabetic polyneuropathy; E11.51 Type 2 diabetes mellitus with diabetic peripheral angiopathy without gangrene; Z79.84 Long term (current) use of oral hypoglycemic drugs; E78.5 Hyperlipidemia, unspecified; E66.01 Morbid (severe) obesity due to excess calories; Z68.30 Body mass index [BMI] 30.0-30.9, adult; Z71.3 Dietary counseling and surveillance; Z71.82 Exercise counseling; Z79.899 Other long term (current) drug therapy; Z11.52 Encounter for screening for COVID-19; Z79.82 Long term (current) use of aspirin; Z79.02 Long term (current) use of antithrombotics/antiplatelets
CPT/HCPCS: 36415; 70450; 71045; 71250; 76882; 80048; 80053; 81001; 82550; 82948; 83605; 83735; 83880; 84100; 84443; 84484; 85025; 85610; 85730; 87040; 87086; 93005; 93970; 94640; 94799; 99284; J1650; J1885; J2470; J2543; J7030; J7050; Q9967